=== PATIENT | female | born 1955 | race Caucasian/White ===

== ENCOUNTER 2020-12-02 12:54 | Emergency (ER) | payer OTHER, SELFPAY ==
--- NOTE | ~2020-12-02 | XR_ITS ---
EXAMINATION: XR shoulder RT min 2V EXAM DATE: 12/02/2020 13:41 INDICATION: Fall today, right shoulder pain with limited range of motion. Initial encounter. TECHNIQUE: The following right shoulder projections obtained: frontal projection with internal rotati on, frontal projection with external rotation, Grashey, and scapular Y view (4+ views). There is no prior study for comparison. FINDINGS: Acute closed posttraumatic comminuted right humeral head/neck fractures, with about 2 cm di splacement of the greater tuberosity. Glenoid is intact. There is no dislocation. 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 IMPRESSION: Acute comminuted right humeral greater tuberosity/neck fractures. Reviewed, dictated and finalized at location B.
[2020-12-02 13:22] VITALS: BP 128/80; PULSE 68; RESP 14; TEMP 36.7; O2SAT 98
--- NOTE | 2020-12-02 13:42 | ED.FALL ---
HPI - Fall General Chief Complaint: Fall Stated Complaint: FALL/R SHOULDER PAIN Time Seen by Provider: 12/02/20 13:12 Source: patient History of Present Illness HPI Narrative: Patient presents after a fall. She was at a fast food restaurant when she stood up and lost her footing. She landed on her right shoulder. She had sudden onset pain and came to the ER for evaluation. She denies any numbness or weakness. She reports she has a hard time moving her right shoulder due to pain. She denies striking her head she denies use of any blood thinners she denies any loss of consciousness. She denied prodrome prior to the fall such as chest pain, breath, or dizziness Related Data Allergies Allergy/AdvReac Type Severity Reaction Status Date / Time clindamycin Allergy Unknown Verified 12/02/20 13:25 Review of Systems Review of Systems: CONSTITUTIONAL: Denies fever, chills, or sweats. EYES: Denies visual changes, redness, or discharge. ENT: Denies rhinorrhea, congestion, sore throat, or otalgia. CARDIOVASCULAR: Denies chest pain, palpitations, or edema. RESPIRATORY: Denies cough or dyspnea. GASTROINTESTINAL: Denies abdominal pain, nausea, vomiting, or diarrhea. GENITOURINARY: Denies dysuria or hematuria. SKIN: Denies rash or itching. MUSCULOSKELETAL: Reports shoulder pain denies back pain, or myalgia. NEUROLOGIC: Denies headache, numbness, dizziness, or weakness. PSYCHIATRIC: Denies anxiety or depression. All systems reviewed & are unremarkable except as noted in HPI and below PMFSH Social History Social History (Updated 12/02/20 @ 14:19 by Emile Strong MD) Smoking status: Never smoker Exam Narrative: GENERAL: Well-appearing, well-nourished, and in no acute distress. HEAD: Normocephalic, atraumatic. EYES: PERRLA and EOMI. ENT: Nares clear, no rhinorrhea or epistaxis. Mucous membranes moist. NECK: Supple. No masses. No midline neck pain EXTREMITIES: Limited range of right shoulder due to pain patient has 5 out of 5 blow machine tender starch spraying strength, sensation intact to the right hand, cap refill less than 2 seconds. SKIN: Warm, dry, no rash. NEURO: No focal deficits. Alert and oriented x3. PSYCH: Normal mood and affect. Course Reevaluation(s) Reevaluation #1: Imaging and plan reviewed with patient. Patient comfortable with outpatient plan. Date: 12/02/20 Time: 14:18 Vital Signs Vital signs: Vital Signs Temperature 36.7 C 12/02/20 13:22 Pulse Rate 68 12/02/20 13:22 Respiratory Rate 14 12/02/20 13:22 Blood Pressure 128/80 12/02/20 13:22 Pulse Oximetry 98 12/02/20 13:22 Temperature 36.7 C 12/02/20 13:22 Pulse Rate 62 12/02/20 14:50 Respiratory Rate 14 12/02/20 14:50 Blood Pressure 146/58 H 12/02/20 14:50 Pulse Oximetry 100 12/02/20 14:50 MDM - Fall MDM Narrative Medical decision making narrative: H&P as above, vss, pt looks clinically well, exam tenderness around the right shoulder distal extremity neurovascular intact, imaging with proximal humeral fracture additional labs/img considered, symptomatic relief available as needed, on reevaluation pt continues to looks clinically well. Suspect isolated fracture without neurovascular compromise, dns syncopal event, intracranial hemorrhage, cord compromise. plan to tx/monitor as op w/ Ortho f/u findings/plan discussed with pt, pt agree/comfortable with plan, return precautions given Discharge Plan Discharge Clinical Impression: Fracture of humeral head, right, closed Qualifiers: Encounter type: initial encounter Qualified Code(s): S42.291A - Other displaced fracture of upper end of right humerus, initial encounter for closed fracture Fall Qualifiers: Encounter type: initial encounter Qualified Code(s): W19.XXXA - Unspecified fall, initial encounter Patient Disposition: Home, Self-Care Condition: Improved Instructions: Antibiotic Form, Arm Fracture in Adults (ED) Additional Instructions: Please return if your symptoms worsen or fail to
[2020-12-02] MEDS: KETOROLAC 30 MG/ML VIAL (*BKC) IM (13:48)
[2020-12-02 14:50] VITALS: BP 146/58; PULSE 62; RESP 14; O2SAT 100
== END 2020-12-02 15:04 | disposition home or self-care (01) ==
PROVIDERS: Emergency Provider Emergency Medicine; PCP Internal Medicine
DX: S42.251A Displaced fracture of greater tuberosity of right humerus, initial encounter for closed fracture (principal); W01.0XXA Fall on same level from slipping, tripping and stumbling without subsequent striking against object, initial encounter
CPT/HCPCS: 73030; 96372; 99284; J1885